=== PATIENT | male | born 1955 | race Caucasian/White ===

== ENCOUNTER → 2019-05-12 08:00 | Outpatient (CLI) | payer OTHER, SELFPAY ==
[2019-05-07 13:08] VITALS: BMI 42.2
--- NOTE | 2019-05-12 08:01 | RDU_ITS ---
Reason For Study: Refractory HTN Right Renal Artery Left Renal Artery Right renal artery ostium 70.3/15.7 Left renal artery ostium 87.4/23.9 RSV/EDV. PSV/EDV. Right renal artery proximal Left renal artery proximal PSV/EDV 106.8/29.4 PSV/EDV. 89.6/24.8 . Right renal artery mid 141.5/38.9 Left renal artery mid 84.4/23.1 PSV/EDV. PSV/EDV . Right renal artery distal 103.6/21.5 Left renal artery distal 71.9/17.6 PSV/EDV. PSV/EDV. Right RAR 1.45. Left RAR 0.92. Right Renal Parenchyma Left Renal Parenchyma Upper Pole Medula 34.1/10.2 PSV/EDV. Left upper pole medulla 36/9.6 Right upper pole medulla EDR 0.30 . PSV/EDV . Right upper pole medulla R.I. 0.70 . Left upper pole medulla EDR 0.27 . Upper Stef Cortx 24.9/8.4 PSV/EDV. Left upper pole medulla R.I. 0.73 . Right upper pole cortex EDR 0.34 . UP Cortex 23.7/8.4 PSV/EDV. Right upper pole cortex R.I. 0.67 . Left upper pole cortex EDR 0.35 . Right lower Pole medulla 37.2/12 Left upper pole cortex R.I. 0.65 . PSV/EDV . Left lower Pole medulla 34.8/9.6 Right lower pole medulla EDR 0.32 . PSV/EDV . Right lower pole medulla R.I. 0.68 . Left lower pole medulla EDR 0.28 . Lower Pole Cortex 17.6/5.9 PSV/EDV. Left lower pole medulla R.I. 0.72 . Right lower pole cortex EDR 0.34 . Lower Pole Cortx 25.5/8.4 PSV/EDV. Right lower pole cortex R.I. 0.66 . Left lower pole cortex EDR 0.33 . Right Renal Hilar Left lower pole cortex R.I. 0.67 . Right Hilar avg 52.2/16 PSV/EDV. Left Renal Hilar Right hilar acceleration time 50 LT Hilar avg 38/13.3 PSV/EDV . m/sec. Left hilar acceleration time 30 Right Renal Dimensions m/sec. Right kidney size 10.59 cm . Left Renal Dimensions Right cortical dimension 1.7 cm . Left kidney size 11.45 cm . Nonvascularized hypoechoic structure Left cortical dimension 1.68 cm . noted on the proximal head of the kidney measuring approximently 5.8 x 6.27 cm. Aorta Proximal abdominal aorta 1.88 x 1.83 cm . Proximal abdominal aorta peak systolic velocity is 97.9 cm/sec . Distal abdominal aorta 1.89 x 1.89 cm . Distal abdominal aorta peak systolic velocity is 107 cm/sec . Interpretation Summary <60% stenosis right renal artery Probable right renal cyst 5.8 x 6.27cm Right renal length normal at 10.59cm <60% stenosis left renal artery Left renal length 11.45cm No evidence for aortic aneurysm Ordering Physician: Hetal Mcdowell Referring Physician: Clifton Garcia MD Performed By: Mary Montoya RVT
== END ==
PROVIDERS: PCP Family Medicine; Referring Provider Specialist; Visit Provider Specialist
DX: I10 Essential (primary) hypertension (principal); I42.9 Cardiomyopathy, unspecified; I47.2 Ventricular tachycardia
CPT/HCPCS: 93975

== ENCOUNTER 2019-05-27 08:39 | Day surgery (SDC) | payer OTHER, SELFPAY ==
[2019-05-19 13:11] VITALS: BMI 42.2
[2019-05-19 15:15] LABS: Absolute Lymphocyte Count 1.76 X10^3/uL (0.83-4.51); Absolute Neutrophil Count 4.5 X10^3/uL (2.0-7.7); Basophil# 0.04 X10^3/uL; Basophil% 0.6 % (0-1); Eosinophil# 0.24 X10^3/uL; Eosinophils% 3.4 % (0-5); Hematocrit 47.1 % (40-54); Hemoglobin 14.9 g/dL (13.0-16.5); Lymphocyte # 1.76 X10^3/ul (4.0); Lymphocyte % 24.9 % (19-41); Mean Corp Hgb Conc 31.6 g/dL (32-36); Mean Corpuscular Hgb 28.6 pg (27.0-32.0); Mean Corpuscular Volume 90.4 fL (80-94); Mean Platelet Vol. 10.7 fl (6.2-12.0); Monocyte# 0.55 X10^3/uL; Monocyte% 7.8 % (0-10); NRBC Flagged by Analyzer 0 % (0-5); Neutrophil # 4.46 X10^3/uL (2.7-7.7); Neutrophil % 62.9 % (47-70); Platelet Count 199 K/mm3 (150-450); RBC Distribution Width CV 12.7 % (11.6-14.6); RBC Distribution Width SD 41.3 fl (35.1-43.9); Red Blood Count 5.21 M/mm3 (4.6-6.2); White Blood Count 7.1 K/mm3 (4.4-11.0)
[2019-05-19 15:31] LABS: Prothrombin Time (Protime)PT. 13.1 SECONDS (11.7-14.9)
[2019-05-19 15:32] LABS: Partial Thromboplast Time 25.8 Seconds (24.1-36.2)
[2019-05-19 15:58] LABS: Anion Gap 2 (5-15); BUN 28 mg/dL (7-18); BUN/Creat Ratio 23.5 RATIO (10-20); Chloride 109 mmol/L (98-107); Creatinine, Serum 1.19 mg/dL (0.70-1.30); EST Glomerular Filtration Rate 66 mL/min (>60); Est Glom Filt Rate - Afr Amer 79 mL/min (>60); Glucose 96 mg/dL (74-106); Potassium 4.3 mmol/L (3.5-5.1); Sodium Level 141 mmol/L (136-145)
[2019-05-26 06:59] VITALS: BMI 41.6
--- NOTE | 2019-05-27 18:07 | CL.D_ITS ---
Patient Name: CM GRACE Study Date: 05/27/2019 Performing: Nitza Mcdowell MD Ht: 69 inches 175 cm : 1955 Wt: 282.6 lbs 128 kg Age: 63 Gender: male BSA: 2.39 PROCEDURE(S) PERFORMED [id number]/LV [id number] RENAL ANGIO WITH HEART CATH CLINICAL PROFILE AND INDICATIONS Indications: Cardiomyopathy Heart Failure: None Stress/Imaging Stress/Image Study Performed: No CAD Presentations: Symptom unlikely to be ischemic. CONCLUSIONS RECOMMENDATIONS Non obstructive CAD. Preserved EF. No significant or MR. No significant renal artery stenoses. DESCRIPTION OF PROCEDURE The patient arrived to the procedure lab. The risks and benefits of the procedure as well as a full d escription of our services here and current unavailability of surgical backup were fully explained to the patient and/or their significant other prior to the catheterization. The Timeout was completed, verifying the correct patient and procedure. The patient's procedural site was prepped and draped in the usual fashion. Local anesthetic was given subcutaneously to right radial region with Lidocaine 2% . Using a modified Seldinger technique, arterial access was obtained via the right radial artery, a 6 Fr sheath was inserted. Left Coronary Artery selective angiography was performed in multiple views u sing a 5 Fr. JL3.5 catheter. Right Coronary Artery selective angiography was then performed in multip le views using a 5 Fr. JR 4 catheter. Left Ventriculography was performed in COLON projection using a 5 Fr. JR 4 catheter. LV to AO pullback pressures were then recorded. renal non-selective angiography was then performed in single view using 6FR pigtail catheter.The arterial sheath was pull ed and a TR Band was applied for hemostasis. 12cc of air applied CORONARY ANGIOGRAPHY DOMINANCE: Right Dominant LEFT HEART ASSESSMENT Left Ventricular Ejection Fraction: by LV Gram 50-55 % Normal LV wall motion LEFT MAIN: Mild luminal irregularities LEFT ANTERIOR DESCENDING ARTERY: Mild luminal irregularities CIRCUMFLEX ARTERY: Mild luminal irregularities RIGHT CORONARY ARTERY: Mild luminal irregularities VALVE FINDINGS: No Aortic Valve Stenosis No Mitral Insufficency COMPLICATIONS No Complications PROCEDURE MEDICATIONS Fentanyl 50 mcg IV Versed 1 mg IV Oxygen: 2 L/min via nasal cannula Heparin given IA 05/27/2019 10:57:59 Verapamil 2.5mg, Ntg 100mcgs, 3000 units of Heparin given IA 05/27/2019 10:57:59 SUMMARY OF HEMODYNAMIC DATA Time AIR REST ECG 09:04:25 AO 126/82 (102) SA 11:01:09 LV 141/0, 9 11:04:17 LV 153/-2, 11 11:04:23 LV 152/-1, 11 11:05:13 LVp 160/2, 15 11:05:23 AOp 142/72 (100) 11:05:28 Signed By Nitza Mcdowell MD On 05/27/2019 6:06:12 PM Nitza Mcdowell MD
== END 2019-05-27 13:45 | disposition home or self-care (01) ==
PROVIDERS: PCP Family Medicine; Referring Provider Specialist; Visit Provider Specialist
DX: I25.10 Atherosclerotic heart disease of native coronary artery without angina pectoris (principal); I42.9 Cardiomyopathy, unspecified; I47.2 Ventricular tachycardia; I10 Essential (primary) hypertension; G47.33 Obstructive sleep apnea (adult) (pediatric); Z79.899 Other long term (current) drug therapy
CPT/HCPCS: 36415; 75625; 80048; 85025; 85610; 85730; 93458; 99152; 99153; J7040; Q9967; C1769; C1894

== ENCOUNTER → 2020-01-06 10:05 | Outpatient (CLI) | payer OTHER, SELFPAY ==
[2019-06-23 09:22] VITALS: BMI 42.7
[2020-01-06 13:28] LABS: PSA,Total - Annual Screen 0.06 ng/mL (0.00-4.00)
== END ==
PROVIDERS: PCP Family Medicine
DX: Z12.5 Encounter for screening for malignant neoplasm of prostate (principal)
CPT/HCPCS: 36415; 84153; G0103

== ENCOUNTER 2020-01-21 06:48 | Day surgery (SDC) | payer OTHER, SELFPAY ==
[2019-06-23 09:22] VITALS: BMI 42.7
[2020-01-21 07:31] VITALS: BMI 41.3
[2020-01-21 07:41] VITALS: BP 121/78; PULSE 68; RESP 18; TEMP 36.9; O2SAT 97; BMI 41.3
[2020-01-21] MEDS: Lactated Ringers 1,000 ML 100 ML IV (07:54)
--- NOTE | 2020-01-21 08:29 | H&P.OPEN ---
History of Present Illness Date of Admission: 01/21/20 The patient is a 64 year old M here for screening colonoscopy. The patient reports no abdominal pain or blood in stool. He has never had a colonoscopy in the past. He is on no blood thinners. He does not have a family history of colon cancer. Past Medical/Surgical History - Planned Operation Planned Operative Procedure/s: colonoscopy Date of Operative Procedure: 01/21/20 Permit Signed: No S.O.S: No Is This Patient Having a Total Joint: No - Previous Hospitalizations/Surgeries HX Hospitalizations: No HX of Surgeries: hand surgery, tonsillectomy. heart cath 2019 Any Problems With Anesthesia: No You/Your Family Experience Fever (Hyperthermia) With Anes: No Cholinesterase deficiency: No - Cardiovascular Hx Chest Pain within Last 2 months: No Hx of Irregular Heartbeat and/or Afib: Yes - whg. last visit 09/2019,phone Hx Heart Attack: No Hx Congestive Heart Failure: No Hx Rheumatic Fever: No Hx Hypertension: Yes - states controlled with med Hx Internal Defibrillator: No Hx Pacemaker: No Hx Cardiac Catheterization: Yes - 05/2019 [facility] What facility was last heart cath performed: [facility] Date of last Heart Cath: 05/2019 Hx Cardiac Surgery/Stents/Etc.: No Hx Stress Test: Yes - 2017, [facility] stress,echo HX Edema: No Hx Pain in Legs when Walking/Leg Cramps: No - Respiratory Chronic Cough: No HX of Shortness of Breath: No - denies Hoarseness: No Hx Chronic Obstructive Pulmonary Disease (COPD): No Hx Asthma: No Hx Emphysema: No Hx Sleep Apnea: No - not diagnosed Hx Oxygen Use at Home: No Hx Respiratory Tract Infection/Cold (presently): No Do You Snore Loudly (louder than talking or can be heard): Yes Do You Often Feel Tired/ Fatigued/ Sleepy Dring Daytime?: No Has Anyone Observed You Stop Breathing During Sleep?: Yes Result (for STOP score): Positive Hx Smoking: No Smoking Status: Never smoker - Gastrointestinal Hx Gastroesophageal Reflux: Yes - occas heartburn Controlled With Meds: Yes - diet controlled Hx Gastrointestinal Disorders: No Hx Gastrointestinal Bleed: No Hx Ulcer: Yes - per hx Hx Hiatal Hernia: No Difficulty Chewing/Swallowing: No Recent Onset of Swallowing Problems: No Special diet followed at home: No Hx Unplanned Weight Loss of 20#: No HX Unplanned Weight Gain of 20#: No - Neurological Hx Seizures: No HX Syncope/Blackout Spells/Unconsciousness: No Hx CVA/Stroke: No Hx Transient Ischemic Attacks (TIA): No Hx Multiple Sclerosis: No Hx Parkinson's Disease: No Hx Head/Neck Injury: No Hx Headaches: No Hx Back Injury/Pain: Yes - per hx, ruptured disc Recent Onset of Speech Difficulty: No Restless Legs: No Does patient have nerve stimulator: No - Blood Disorder Hx Leukemia: No Bleeding Tendencies: No Hx Deep Vein Thrombosis: No Hx High Cholesterol: Yes - on med Blood Transmitted Disease: No Hx Hepatitis: No Hx Cirrhosis: No Hx Anemia: No Hx Blood Disorders: No - Genitourinary Hx Renal Disease: Yes - hx stone, hx cyst Hx Dialysis: No - Musculoskeletal Hx Arthritis: Yes Hx Rheumatoid Arthritis: No Hx Gout: Yes - in the past,foot Recent Onset of an Orthopedic Problem: No - Endocrine Hx Diabetes: No Thyroid Disease: No Hx Steroid Therapy: No - Psycho/Social Hx Substance Use: No Hx Alcohol Use: Yes - rare Hx Anxiety: No Hx Depression: No Mental Illness: No Hx Dementia: No - Miscellaneous Hx Cancer: No Recent Exposure to Contagious Disease: No Active MRSA: No Hx of C-Diff: No Any Loose Teeth: No Allergies erythromycin base Allergy (Intermediate, Verified 01/13/20 13:50) rash Penicillins Allergy (Intermediate, Verified 01/13/20 13:50) Hives - Discharge Is Pt Admitted From a Prison, or a [facility]sp: No Who Could Help: After D/C, Where Do you Plan to Go: Return Home - From the PAT History Number of Risk Factors: 4 - Physical Exam Vitals/I&O's: Vital Signs Temp Pulse Resp BP Pulse Ox 98.5 F 68 18 121/78 H 97 01/21/20 07:41 01/21/20 07:41 01/21/20 07:41 01/21/20 07:41 01/21/20 07:41 Oxygen Delivery Method Room Air Weight: 288 lb 2.307 oz Body Mass Index (BMI) 41.3 General: Alert, Oriented x3 Neck: No JVD Lungs: Normal air movement Cardiovascular: Regular rate, Regular Rhythm Abdomen: Soft, Non Tender, Non-Distended Current Medications Lactated Ringer's () 1,000 mls @ 100 mls/hr IV .Q10H LORY Last Admin: 01/21/20 07:54 Dose: 100 mls/hr Documented by: Assessment/Plan All Active Problems (Last Reviewed 09/29/19 @ 12:[address] Hetal Mcdowell MD) Bradycardia (Acute) 64-year-old male screening colonoscopy I explained endoscopy in detail to the patient. I explained the risks including but not limited to stroke or heart attack with anesthesia, perforation of the GI tract, bleeding, infection. I explained that any of these could necessitate further emergency surgery. The patient understands and all questions were answered sufficiently. The patient wishes to proceed with procedure. We discussed the current risks associated with COVID-19. While it is understood that there is a community spread of COVID-19, the risk of jean pierre COVID-19 while at [facility] ([facility]) is very low; however, the risk cannot be completely mitigated because of the community spread of the disease. We discussed in detail the risk of exposure to and/or potential harm posed by the COVID-19 virus with having a surgery/procedure at this time versus the risk of delaying the surgery/procedure. It is not possible to know either the risk of delaying the surgery or procedure or chance of getting an infection with perfect accuracy, but a joint decision was made to proceed at this time with the scheduled surgery/procedure as indicated on the consent form. Patient was notified that we will need to comply with any screening or testing [facility] wishes to perform or that surgery may be delayed for any positive results. Zeeshan Isaac MD Pager: [facility] [address] [place] [address], [address] [place] [address] Office: Surgery Risks - Colonoscopy Risks Include but are not Limited To: Risks include but are not limited to: Bleeding, perforation requiring further surgery, inability to complete colonoscopy requiring barium enema.
[2020-01-21 09:04] VITALS: BP 104/65; BP 121/78; PULSE 54; RESP 14; TEMP 36.5; O2SAT 98
--- NOTE | 2020-01-21 09:09 | OP.CCLET_ITS ---
01/21/2020 Clifton Garcia Re : Colonoscopy procedure for Rober Garcia This procedure was performed on Tuesday, January 21, 2020. My impressions and recommendations are as follows: Impressions : - The entire examined colon is normal on direct and retroflexion views. - No specimens collected. Recommendations : - Discharge patient to home. - Resume previous diet. - Continue present medications. - Repeat colonoscopy in 10 years for screening purposes. My findings are described in the full procedure note, which is enclosed. If I can be of further assistance, please feel free to contact me at Doctor phone number(s): , Work: . Sincerely, Zeeshan Isaac MD 01/21/2020 9:08:56 AM This report has been signed electronically.
--- NOTE | 2020-01-21 09:09 | OP.COLON_ITS ---
Patient Name: Rober Jones Procedure Date: 01/21/2020 8:33 AM Date of : 1955 Age: 64 Procedure: Colonoscopy Indications: Screening for colorectal malignant neoplasm Providers: Zeeshan Isaac MD Referring MD: Clifton Garcia Medicines: Monitored Anesthesia Care Patient Profile: This is a 64 year old male. Refer to note in patient chart for documentation of history and physical. Last Colonoscopy: none. The patient's first colonoscopy is today. Complications: No immediate complications. Estimated blood loss: Minimal. Procedure: Pre-Anesthesia Assessment: - Prior to the procedure, a History and Physical was performed, and patient medications and allergies were reviewed. The patient's tolerance of previous anesthesia was also reviewed. The risks and benefits of the procedure and the sedation options and risks were discussed with the patient. All questions were answered, and informed consent was obtained. Prior Anticoagulants: The patient has taken no previous anticoagulant or antiplatelet agents. After reviewing the risks and benefits, the patient was deemed in satisfactory condition to undergo the procedure. After I obtained informed consent, the scope was passed under direct vision. Throughout the procedure, the patient's blood pressure, pulse, and oxygen saturations were monitored continuously. The pediatric colonoscope was introduced through the anus and advanced to the cecum, identified by appendiceal orifice and ileocecal valve. The colonoscopy was performed without difficulty. The patient tolerated the procedure well. The quality of the bowel preparation was good. Findings: The entire examined colon appeared normal on direct and retroflexion views. Impression: - The entire examined colon is normal on direct and retroflexion views. - No specimens collected. Recommendation: - Discharge patient to home. - Resume previous diet. - Continue present medications. - Repeat colonoscopy in 10 years for screening purposes. Procedure Code(s): --- Professional --- 72321, Colonoscopy, flexible; diagnostic, including collection of specimen(s) by brushing or washing, when performed (separate procedure) Diagnosis Code(s): --- Professional --- Z12.11, Encounter for screening for malignant neoplasm of colon CPT copyright 2017 [employer]. All rights reserved. The codes documented in this report are preliminary and upon director software quality assurance review may be revised to meet current compliance requirements. Zeeshan Isaac MD 01/21/2020 9:08:56 AM This report has been signed electronically. Number of Addenda: 0 Note Initiated On: 01/21/2020 8:33 AM
[2020-01-21 09:10] VITALS: BP 107/71; BP 121/78; PULSE 45; RESP 14; O2SAT 93
[2020-01-21 09:15] VITALS: BP 121/78; BP 121/80; PULSE 47; RESP 16; O2SAT 95
[2020-01-21 09:20] VITALS: BP 121/78; BP 122/72; PULSE 48; RESP 16; TEMP 36.9; O2SAT 95
[2020-01-21 09:30] VITALS: BP 121/78
== END 2020-01-21 10:17 | disposition home or self-care (01) ==
LOC: EN 06:49 → AC 06:49
PROVIDERS: Anesthesiology; PCP Family Medicine; Referring Provider Family Medicine; Visit Provider Surgery
PROC: 0DJD8ZZ Inspection of Lower Intestinal Tract, Via Natural or Artificial Opening Endoscopic (ICD-10-PCS; CPT 45378; principal; 2020-01-21 07:55)
DX: Z12.11 Encounter for screening for malignant neoplasm of colon (principal); I10 Essential (primary) hypertension; E78.00 Pure hypercholesterolemia, unspecified; Z79.899 Other long term (current) drug therapy; Z11.59 Encounter for screening for other viral diseases
CPT/HCPCS: 45378; 87635; C9803; J7120; J2405; U0003

== ENCOUNTER → 2020-03-07 10:02 | Outpatient (CLI) | payer OTHER, SELFPAY | PROVIDERS: PCP Family Medicine; Referring Provider Family Medicine; Visit Provider Family Medicine | DX: Z03.818 Encounter for observation for suspected exposure to other biological agents ruled out (principal) | CPT/HCPCS: 87635; C9803; U0003 ==

== ENCOUNTER → 2020-05-26 09:51 | Outpatient (CLI) | payer OTHER, SELFPAY ==
[2020-05-26 12:15] LABS: Basophil# 0.03 X10^3/uL; Basophil% 0.5 % (0-1); Eosinophil# 0.23 X10^3/uL; Eosinophils% 3.6 % (0-5); Hematocrit 46.9 % (40-54); Hemoglobin 14.5 g/dL (13.0-16.5); Lymphocyte % 26.4 % (19-41); Mean Corp Hgb Conc 30.9 g/dL (32-36); Mean Corpuscular Hgb 28.2 pg (27.0-32.0); Mean Corpuscular Volume 91.2 fL (80-94); Mean Platelet Vol. 10.6 fl (6.2-12.0); Monocyte# 0.47 X10^3/uL; Monocyte% 7.3 % (0-10); NRBC Flagged by Analyzer 0 % (0-5); Neutrophil % 61.9 % (47-70); Platelet Count 176 K/mm3 (150-450); RBC Distribution Width CV 12.4 % (11.6-14.6); RBC Distribution Width SD 41.9 fl (35.1-43.9); Red Blood Count 5.14 M/mm3 (4.6-6.2); White Blood Count 6.5 K/mm3 (4.4-11.0)
[2020-05-26 12:30] LABS: ALB/GLOB Ratio 1.1 RATIO (0.9-2.4); AST(SGOT) 23 U/L (15-37); Alanine Aminotransfer ALT/SGPT 37 U/L (16-61); Albumin, Serum 3.6 g/dL (3.2-5.0); Alkaline Phosphatase 50 U/L (45-117); Anion Gap 3 (5-15); BUN 24 mg/dL (7-18); BUN/Creat Ratio 18.6 RATIO (10-20); Calcium,Total 9.5 mg/dL (8.5-10.1); Chloride 107 mmol/L (98-107); Cholesterol 93 mg/dL (200); Creatinine, Serum 1.29 mg/dL (0.70-1.30); EST Glomerular Filtration Rate 60 mL/min (>60); Est Glom Filt Rate - Afr Amer 72 mL/min (>60); Globulin 3.4 g/dL (2.2-4.2); Glucose 102 mg/dL (74-106); High Density Lipoprotein 51 mg/dL; Potassium 4.5 mmol/L (3.5-5.1); Sodium Level 140 mmol/L (136-145); Triglycerides 83 mg/dL; Very Low Density Lipoprotein 17 mg/dL (5-40)
== END ==
PROVIDERS: PCP Family Medicine; Visit Provider Family Medicine
DX: I10 Essential (primary) hypertension (principal); E78.5 Hyperlipidemia, unspecified
CPT/HCPCS: 36415; 80053; 80061; 85025

== ENCOUNTER → 2020-07-21 20:00 | Outpatient (CLI) | payer OTHER, SELFPAY ==
[2020-07-04 13:02] VITALS: BMI 43.3
== END ==
PROVIDERS: PCP Family Medicine; Referring Provider Specialist; Visit Provider Specialist
DX: G47.10 Hypersomnia, unspecified (principal); I10 Essential (primary) hypertension; I42.9 Cardiomyopathy, unspecified; I47.2 Ventricular tachycardia; R00.1 Bradycardia, unspecified
CPT/HCPCS: 95811

== ENCOUNTER → 2020-08-02 10:04 | Outpatient (CLI) | payer OTHER, SELFPAY ==
[2020-07-04 13:02] VITALS: BMI 43.3
[2020-08-02 09:07] VITALS: BMI 43.9
== END ==
PROVIDERS: PCP Family Medicine; Referring Provider Nurse Practitioner Acute Care; Visit Provider Nurse Practitioner Acute Care
DX: Z46.89 Encounter for fitting and adjustment of other specified devices (principal)

== ENCOUNTER → 2022-01-03 | Outpatient (CLI) | payer MEDICARE, SELFPAY ==
--- NOTE | 2022-01-03 | TISS_PTH ---
PATIENT: CM GRACE LOC: [facility] U#:[id number] AGE/SX: 66/M ROOM: RE01/03/[address]: Dr. Mitzi Ventura MD : 1955 BED: DIS: 01/03/2022 SPEC #: [id number] RECD: 01/03/22 17:22 STATUS: JACOBY SUSAN #: [id number] ABDELRAHMAN: 01/03/22 00:[address]: Mitzi Ventura DEPT: SURGICAL PATHOLOGY RECD BY: Ruthie Perry Tissues: Skin of forearm, NOS Procedures: Special Stain Group I Surgery Specimen Level IV GMS Stain (control) HEADER OPERATION: Punch biopsy PRE-OP DIAGNOSIS: AK vs SCC TISSUE SUBMITTED: 3 mm punch right forearm MICROSCOPIC DIAGNOSIS Right forearm lesion, punch biopsy: Acanthosis with focal verrucous features. Psoriasiform epidermal hyperplasia, hyperkeratosis and parakeratosis. Solar elastosis. Dermal chronic inflammation. Negative for malignancy. See comment. DMOINIQUE:shana 01/07/2022 COMMENT Special stain for fungi is negative for organisms; matched control is appropriate. Clinical correlation and appropriate follow up are necessary, Excisional biopsy is suggested if clinically indicated. This case has been reviewed in consultation with Dr. Gross who concurs with the above diagnosis. MICROSCOPIC DESCRIPTION Slides are reviewed. GROSS DESCRIPTION Received is one container labeled with the patient's name and not further designated. The specimen consists of a punch biopsy of ballesteros-white skin measuring 0.3 in diameter and 0.1 cm in length. A small brown lesion is noted in the center measuring 0.1 cm in greatest dimension. The entire specimen is submitted in one cassette. / DOMINIQUE:shana 01/04/2022 TC:5 CPT: 42096, 65897
== END | disposition home or self-care (01) ==
PROVIDERS: PCP Family Medicine; Visit Provider Family Medicine
DX: L83 Acanthosis nigricans (principal); L57.8 Other skin changes due to chronic exposure to nonionizing radiation
CPT/HCPCS: 88305; 88312

== ENCOUNTER → 2023-01-28 | Outpatient (CLI) | payer MEDICARE, SELFPAY ==
--- NOTE | 2023-01-28 15:40 | RAD_ITS ---
STUDY: X-RAY - ABDOMEN/PELVIS REASON FOR EXAM: Male, 67 years old. KIDNEY STONES TECHNIQUE: Single AP view of the abdomen / pelvis. COMPARISON: None. FINDINGS: Normal visualized lung bases. There is an unremarkable bowel gas pattern. There is no demonstrated free abdominal air. The visualized liver, spleen and kidneys are grossly normal in size and morphology. Normal soft tissue structures. Normal visualized osseous structures. RAD/Abdomen Single View IMPRESSION: Normal x-ray examination of the abdomen and pelvis. Electronically Signed: Manny Prather MD at 18:41 EDT ,
== END | disposition home or self-care (01) ==
PROVIDERS: PCP Family Medicine
DX: N20.0 Calculus of kidney (principal)
CPT/HCPCS: 74018

== ENCOUNTER → 2023-03-17 | Outpatient (CLI) | payer MEDICARE, SELFPAY ==
--- NOTE | 2023-03-17 13:50 | ECHOCS_ITS ---
Reason For Study: GRACE, CMP Procedure This was a 2D Doppler, Color Flow transthoracic echocardiogram. Exam performed in department. Left Ventricle Normal LV size. Mild concentric left ventricular hypertrophy. Left ventricular systolic function is normal. The estimated ejection fraction is 60 %. Stage 1 diastolic dysfunction. No regional wall motion abnormalities noted. Right Ventricle Normal RV size. The right ventricle is normal in size, function, and thickness. Atria Normal left atrium. Normal right atrium. Mitral Valve Normal mitral valve. Tricuspid Valve Normal tricuspid valve. Aortic Valve Trisinus/trileaflet aortic valve. Pulmonic Valve Normal pulmonic valve. Great Vessels Normal aortic root. The pulmonary artery is normal size. Normal inferior vena cava. Pericardium/Pleural No pericardial effusion. Medication 22 gauge I.V. with prn adaptor inserted into right arm. Performed a rapid injection of agitated mix of 9 cc saline and 1cc air to assess for atrial septal defect. Diluted definity 2ml given slow IV push to enhance endocardial definition. MMode/2D Measurements & Calculations LVIDd: 5.5 cm IVSd: 1.2 cm Ao root diam: 3.2 cm LVIDs: 3.6 cm LVPWd: 1.4 cm RVDd: 4.3 cm FS: 34.7 % LAV(MOD-bp): 73.4 ml LVAd ap4: 43.1 cm2 LVAd ap2: 36.7 cm2 LAV(MOD-bp) Indexed: 29.3 ml/m2 LVLd ap4: 8.9 cm LVLd ap2: 8.9 cm LAV(MOD-sp2): 57.6 ml EDV(MOD-sp4): 175.8 ml EDV(MOD-sp2): 128.5 ml LAV(MOD-sp4): 84.8 ml EDV(sp4-el): 178.1 ml EDV(sp2-el): 128.8 ml LVAs ap4: 28.5 cm2 LVAs ap2: 22.8 cm2 LVLs ap4: 7.8 cm LVLs ap2: 7.9 cm ESV(MOD-sp4): 86.5 ml ESV(MOD-sp2): 55.6 ml ESV(sp4-el): 88.1 ml ESV(sp2-el): 55.8 ml EF(MOD-sp4): 50.8 % EF(MOD-sp2): 56.7 % EF(sp4-el): 50.5 % SV(MOD-sp4): 89.4 ml SV(MOD-sp2): 72.9 ml SV(sp4-el): 90.0 ml LA A4 area: 26.3 cm2 LA dimension(2D): 5.1 cm RA A4 area: 17.5 cm2 TAPSE: 3.0 cm Time Measurements MV dec time: 0.21 sec Doppler Measurements & Calculations MV E max roni: 86.6 cm/sec Lat Peak E' Roni: 9.2 cm/sec Med Peak E' Roni: 5.8 cm/sec MV A max roni: 111.9 cm/sec E/E' lat: 9.5 E/E' med: 15.0 MV E/A: 0.77 Ao V2 max: 183.9 cm/sec LV V1 max: 130.7 cm/sec MV dec slope: 405.5 cm/sec2 Ao max P.5 mmHg LV V1 max P.8 mmHg PA V2 max: 100.9 cm/sec ECHO/Echo Complete W/ Contrast Interpretation Summary Normal LV size. Left ventricular systolic function is normal. The estimated ejection fraction is 60 %. Mild concentric left ventricular hypertrophy. Stage 1 diastolic dysfunction. Contrast injection was performed. Ordering Physician: Lin Ramos Referring Physician: Mitzi Ventura Performed By: Chrissy Roberts RDCS
== END | disposition home or self-care (01) ==
LOC: CVS 13:49
PROVIDERS: PCP Family Medicine; Referring Provider Physician Assistant Medical; Visit Provider Physician Assistant Medical
DX: G47.33 Obstructive sleep apnea (adult) (pediatric) (principal)
CPT/HCPCS: 93306; Q9957; A4216; C8929

== ENCOUNTER → 2023-04-21 | Outpatient (CLI) | payer MEDICARE, SELFPAY ==
[2023-04-21 12:19] LABS: Absolute Lymphocyte Count 1.85 X10^3/uL (0.83-4.51); Absolute Neutrophil Count 3.7 X10^3/uL (2.0-7.7); Basophil# 0.03 X10^3/uL; Basophil% 0.5 % (0-1); Eosinophil# 0.29 X10^3/uL; Eosinophils% 4.5 % (0-5); Hematocrit 46.9 % (40-54); Hemoglobin 14.6 g/dL (13.0-16.5); Lymphocyte # 1.85 X10^3/ul (0.83-4.51); Lymphocyte % 28.6 % (19-41); Mean Corp Hgb Conc 31.1 g/dL (32-36); Mean Corpuscular Hgb 28.8 pg (27.0-32.0); Mean Corpuscular Volume 92.5 fL (80-94); Mean Platelet Vol. 10.4 fl (6.2-12.0); Monocyte# 0.51 X10^3/uL; Monocyte% 7.9 % (0-10); NRBC Flagged by Analyzer 0 % (0-5); Neutrophil # 3.74 X10^3/uL (2.7-7.7); Neutrophil % 57.9 % (47-70); Platelet Count 167 K/mm3 (150-450); RBC Distribution Width CV 12.9 % (11.6-14.6); RBC Distribution Width SD 43.3 fl (35.1-43.9); Red Blood Count 5.07 M/mm3 (4.6-6.2); White Blood Count 6.5 K/mm3 (4.4-11.0)
[2023-04-21 13:31] LABS: AST(SGOT) 22 U/L (15-37); Alanine Aminotransfer ALT/SGPT 42 U/L (16-61); Albumin, Serum 3.4 g/dL (3.2-5.0); Alkaline Phosphatase 53 U/L (45-117); Anion Gap 2 (5-15); BUN 22 mg/dL (7-18); BUN/Creat Ratio 16.1 RATIO (10-20); Calcium,Total 9.8 mg/dL (8.5-10.1); Chloride 109 mmol/L (98-107); Cholesterol 132 mg/dL (200); Creatinine, Serum 1.37 mg/dL (0.70-1.30); EST Glomerular Filtration Rate 55 mL/min (>60); Est Glom Filt Rate - Afr Amer 67 mL/min (>60); Globulin 3.3 g/dL (2.2-4.2); Glucose 121 mg/dL (74-106); High Density Lipoprotein 41 mg/dL; Potassium 4.5 mmol/L (3.5-5.1); Protein, Total 6.7 g/dL (6.4-8.2); Sodium Level 142 mmol/L (136-145); Triglycerides 93 mg/dL; Very Low Density Lipoprotein 19 mg/dL (5-40)
== END | disposition home or self-care (01) ==
LOC: BFHLAB 09:23
PROVIDERS: PCP Family Medicine; Visit Provider Family Medicine
DX: I10 Essential (primary) hypertension (principal); E78.5 Hyperlipidemia, unspecified
CPT/HCPCS: 36415; 80053; 80061; 85025

== ENCOUNTER → 2024-03-15 | Outpatient (CLI) | payer MEDICARE, SELFPAY ==
--- NOTE | 2024-03-15 08:00 | MRI_ITS ---
STUDY: MRI RIGHT KNEE REASON FOR EXAM: Male, 68 years old. TEAR, RT KNEE, LATERAL PAIN TECHNIQUE: Standardized fat and water weighted pulse sequences were obtained in all 3 orthogonal planes. COMPARISON: X-ray of the right knee dated February 11, 2024 FINDINGS: Moderate subcutaneous edema is present around the knee but most prominent anteriorly. A trace amount of subcutaneous fluid is also present in the prepatellar region. No marrow edema or fracture is present. Normal medial meniscus. Normal hyaline cartilage of the medial femorotibial compartment. Normal medial femoral condyle and tibial plateau. Normal medial collateral ligamentous complex (MCL). Normal distal semimembranosus, gracilis and semitendinosus tendons. There is intra-substance myxoid degeneration of the posterior horn of the lateral meniscus, but without a demonstrated meniscal tear. Normal anterior horn and body. There is diffuse, less than 50% thickness articular cartilage loss of the lateral femorotibial compartment. Normal lateral femoral condyle and tibial plateau. Normal proximal tibiofibular articulation. Normal lateral collateral (fibular) ligament. Normal popliteus tendon. Normal biceps femoris tendon. Normal anterior cruciate ligament (ACL). Normal posterior cruciate ligament (PCL). Normal congruent patellofemoral articulation. There is diffuse, less than 50% thickness articular cartilage loss of the patellofemoral compartment. There is near full-thickness loss of cartilage with a 1.07 cm underlying osteochondral defect and subchondral cystic changer fixer the inferior aspect of the lateral trochlear groove of the femur. The remaining trochlear groove cartilage is normal. Small subchondral cysts are present in the median and lateral patellar facet regions. Normal medial and lateral patellar retinaculum. Normal quadriceps tendon. Normal patellar tendon. Normal Hoffa''s fat pad. A moderate size joint effusion is present. The soft tissues are unremarkable. The otherwise visualized osseous structures are unremarkable. MRI/Lower Ext Joint Only (Routine) IMPRESSION: 1. There is near full-thickness loss of cartilage with a 1.07 cm underlying osteochondral defect and subchondral cystic changer fixer the inferior aspect of the lateral trochlear groove of the femur. The remaining trochlear groove cartilage is normal. Small subchondral cysts are present in the median and lateral patellar facet regions. 2. Moderate size joint effusion 3. Moderate subcutaneous edema around the knee joint 4. Intrasubstance degenerative signal in the posterior horn of the medial meniscus without a tear. Electronically Signed: Glenroy Becerra MD at 9:05 EST ,
== END | disposition home or self-care (01) ==
PROVIDERS: PCP Family Medicine; Referring Provider Nurse Practitioner Family; Visit Provider Nurse Practitioner Family
DX: M25.561 Pain in right knee (principal)
CPT/HCPCS: 73721

== ENCOUNTER → 2024-11-12 | Outpatient (CLI) | payer MEDICARE, SELFPAY ==
[2024-11-12 15:53] LABS: Hematocrit 45.2 % (40-54); Hemoglobin 14.7 g/dL (13.0-16.5); Immature Granulocytes Count 0.050 X10^3/uL (0.0-0.0); Mean Corp Hgb Conc 32.5 g/dL (32-36); Mean Corpuscular Volume 90.4 fL (80-94); Mean Platelet Vol. 10.5 fl (6.2-12.0); NRBC Flagged by Analyzer 0 % (0-5); Platelet Count 185 K/mm3 (150-450); RBC Distribution Width CV 13.1 % (11.6-14.6); RBC Distribution Width SD 42.2 fl (35.1-43.9); Red Blood Count 5.00 M/mm3 (4.6-6.2); White Blood Count 7.9 K/mm3 (4.4-11.0)
[2024-11-12 16:15] LABS: Creatinine, Urine (random) 160.00 mg/dL (39.00-259.00); Microalbumin,Random Urine < 12.0 mg/L (<20 mg/L)
[2024-11-12 16:27] LABS: AST(SGOT) 27 U/L (<=37); Alanine Aminotransfer ALT/SGPT 22 U/L (<=46); Albumin, Serum 4.1 g/dL (3.4-4.8); Alkaline Phosphatase 48 U/L (40-129); Anion Gap 10 (5-15); BUN 15 mg/dL (4-19); BUN/Creat Ratio 13.3 RATIO (10-20); Calcium,Total 10.5 mg/dL (7.6-11.0); Carbon Dioxide 24.9 mmol/L (21.0-32.0); Chloride 106 mmol/L (98-108); Cholesterol 141 mg/dL (<=200); Globulin 2.7 g/dL (2.2-4.2); Glucose 108 mg/dL (70-99); Low Density Lipoprotein Calc. 65 mg/dL; Potassium 4.5 mmol/L (3.3-5.1); Triglycerides 122 mg/dL; Very Low Density Lipoprotein 24 mg/dL (5-40); cholesterol:hdl ratio screen 2.73
== END | disposition home or self-care (01) ==
LOC: BFHLAB 12:14
PROVIDERS: PCP Family Medicine; Visit Provider Family Medicine
DX: I10 Essential (primary) hypertension (principal); E11.9 Type 2 diabetes mellitus without complications; E78.5 Hyperlipidemia, unspecified
CPT/HCPCS: 36415; 80053; 80061; 82043; 82570; 85025